=== PATIENT | female | born 1985 | race Caucasian/White ===

== ENCOUNTER → 2022-05-25 | Emergency (ER) | payer SELFPAY ==
[~2022-05-25] MED LIST: METHYLERGONOVINE MALEATE 0.2 MG/1 ML AMP IM ONE; ONDANSETRON 4 MG/2 ML VIAL IVPUSH ONE; ONDANSETRON 4 MG/2 ML VIAL ONE; OXYTOCIN 20 UNITS in 0.9% NS 1000 ML INFUS.BAG IV ONE; SODIUM CHLORIDE 0.9% 500 ML INFUS.BAG IV ONE
[2022-05-25 04:52] LABS: BASO % 0.6 % (0-2.0); EOS % 0.9 % (0-4.5); HEMATOCRIT 30.4 % (32.4-45.2); HEMOGLOBIN 10.3 GM/dL (10.7-15.3); LYMPH % 16.1 % (8-40); MCH 29.7 pg (25.7-33.7); MCHC 33.9 g/dl (32.0-36.0); MEAN CELL VOLUME 87.4 fl (80-96); MONO % 4.9 % (3.8-10.2); NEUT % 77.5 % (42.8-82.8); PLATELET COUNT 531 10^3/uL (134-434); RBC 3.47 M/mm3 (3.60-5.2); RDW 13.4 % (11.6-15.6); WHITE BLOOD COUNT 22.2 K/mm3 (4.0-10.0)
[2022-05-25 05:05] LABS: INR 1.07 (0.83-1.09); PROTHROMBIN TIME (PATIENT) 12.4 SEC (9.7-13.0)
[2022-05-25 05:06] LABS: CALCIUM 8.3 mg/dL (8.5-10.1)
[2022-05-25 05:07] LABS: BLOOD UREA NITROGEN 10.1 mg/dL (7-18); MAGNESIUM 1.9 mg/dL (1.8-2.4)
[2022-05-25 05:10] LABS: CREATININE 0.7 mg/dL (0.55-1.3)
[2022-05-25 05:11] LABS: BILIRUBIN,TOTAL 0.3 mg/dL (0.2-1); TOT PROT 6.7 g/dl (6.4-8.2)
[2022-05-25 06:21] LABS: ACTIVATED PTT 16.6 SECONDS (25.2-36.5)
[2022-05-25 12:33] LABS: ANISOCYTOSIS 0; HELMET CELLS 0; HOWELL-JOLLY BODIES 0; MACROCYTOSIS 0; OVALOCYTE 0; ROULEAU 0; SICKELED CELLS 0; TARGET CELLS 0; TEAR DROP CELLS 0; TOXIC GRANULATION 0
== END | disposition admitted as inpatient to this hospital (09) ==
LOC: JVIRT 03:58 → JER 03:58
CPT/HCPCS: 0241U-QW; 36415; 80053; 83735; 84702; 84703; 85025; 85610; 85730; 86850; 86900; 86901; 86922